=== PATIENT | female | born 1975 | race African-American/Black ===

== ENCOUNTER 2021-02-13 13:34 | Emergency (ER) | payer BC, SELFPAY ==
--- NOTE | ~2021-02-13 | XR_ITS ---
EXAMINATION: XR finger 3rd RT min 2V INDICATION: Right third finger pain TECHNIQUE: Three views of the right third finger are obtained. COMPARISON: None available FINDINGS: Bone alignment is normal. There is no fracture. 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 The soft tissues are unremarkable. IMPRESSION: 1. No acute osseous abnormality. Reviewed, dictated and finalized at location A. GER
[2021-02-13 13:43] VITALS: BP 105/75; PULSE 108; RESP 16; TEMP 36.2; O2SAT 100
--- NOTE | 2021-02-13 15:02 | ED.UPPEXIN ---
HPI - Extremity Injury (Upper) General Chief Complaint: Extremity Injury, Upper Stated Complaint: right hand middle finger swollen History of Present Illness HPI narrative: This a 45-year-old female comes in complaining rIGHT MIDDLE FINGER AND NAIL IS FALLING OFF AND FINGER IS SWOLLEN AND RED AND PER PATIENT IT IS JAMMED. 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 Patient has fake fingernails on in the fake nail and the fingernail is torn. Patient has some paronychia noted erythema red and warm. Related Data Allergies Allergy/AdvReac Type Severity Reaction Status Date / Time No Known Drug Allergies Allergy Unknown Verified 05/26/18 09:44 Review of Systems Review of Systems: Right middle finger pain All systems reviewed & are unremarkable except as noted in HPI and below PMFSH Comments At time as signature, I have reviewed and agree with nursing past medical, social, surgical and family history. Please see nursing chart for further information. There is no relevant family history pertinent to the presenting complaint. Exam Narrative: GENERAL:Well-appearing, well-nourished, and in no acute distress. HEAD:Normocephalic EYES: PERRLA ENT: Nares clear, no rhinorrhea Mucous membranes moist. CHEST: Clear to auscultation. No respiratory distress. HEART: Regular rate and rhythm. No murmur heard. Normal peripheral pulses. ABDOMEN: Soft, nontender, nondistended, normal active bowel sounds. EXTREMITIES: Normal range of motion. SKIN: Warm, dry, no rash. NEURO: No focal deficits. Alert and oriented x3. Course Vital Signs Vital signs: Vital Signs Temperature 97.1 F L 02/13/21 13:43 Pulse Rate 108 H 02/13/21 13:43 Respiratory Rate 16 02/13/21 13:43 Blood Pressure 105/75 02/13/21 13:43 Pulse Oximetry 100 02/13/21 13:43 Temperature 97.1 F L 02/13/21 13:43 Pulse Rate 108 H 02/13/21 13:43 Respiratory Rate 16 02/13/21 13:43 Blood Pressure 105/75 02/13/21 13:43 Pulse Oximetry 100 02/13/21 13:43 MDM - Extremity Injury (Upper) Differential Diagnosis Differential diagnosis: Likely fracture of wrist, finger sprain, dislocation of finger, Colles' fracture, fracture of hand, fracture of humerus and other Discharge Plan Discharge Clinical Impression: Paronychia, Nail abnormalities Patient Disposition: Home, Self-Care Condition: Stable Instructions: Antibiotic Form, Paronychia (ED) Additional Instructions: Wash the area with clean water 2 times a day. Don't use hydrogen peroxide or alcohol, which can slow healing. You may cover the area with a thin layer of petroleum jelly, such as Vaseline, and a non-stick bandage. Apply more petroleum jelly and replace the bandage as needed. If your doctor prescribed antibiotics, take them as directed. Do not stop taking them just because you feel better. You need to take the full course of antibiotics. Take an [id number]-wpsxjji pain medicine, such as acetaminophen (Tylenol), ibuprofen (Advil, Motrin), or naproxen (Aleve). Read and follow all instructions on the label. Do not take two or more pain medicines at the same time unless the doctor told you to. Many pain medicines have acetaminophen, which is Tylenol. Too much acetaminophen (Tylenol) can be harmful. Prop up the toe or finger so that it is higher than the level of your heart. This will help with pain and swelling. Apply heat. Put a warm water bottle, heating pad set on low, or warm cloth on your finger or toe. Do not go to sleep with a heating pad on your skin. Soak the area in warm water twice a day for 15 minutes each time. After soaking, dry the area well and apply a thin layer of petroleum jelly, such as Vaseline. Put on a new bandage. Prescriptions: New cephalexin 500 mg capsule 500 mg PO Q12H 10 Days Qty: 20 RF: 0
== END 2021-02-13 15:09 | disposition home or self-care (01) ==
PROVIDERS: Emergency Provider Nurse Practitioner Family
DX: L03.011 Cellulitis of right finger (principal)
CPT/HCPCS: 73140; 99213; G0463